=== PATIENT | female | born 1975 | race Hispanic/Latino ===

== ENCOUNTER 2017-07-03 19:38 | Inpatient (IN) | payer MEDICAID ==
[2017-07-03] MEDS ORDERED: Albuterol-Ipratrop 3 mg / 0.5 (3 ml) UD INH STA (20:35)
--- NOTE | 2017-07-03 20:35 | C.PDOC ---
History Of Present Illness 41 year old female presents to the ED as a pre-screen for detox. Patient is dependent on daily dosages of heroin and cocaine. Last drug dose was earlier today. Patient denies any IV drug use. Patient has a history of asthma and is not complaint with medication. Chief Complaint (Nursing): Substance Abuse History Per: Patient History/Exam Limitations: no limitations Onset/Duration Of Symptoms: Hrs Current Symptoms Are (Timing): Still Present Suicide/Self Injury Attempted (Context): None Past Medical History Reviewed: Historical Data, Nursing Documentation, Vital Signs Vital Signs: Last Vital Signs Temp 98.2 F 07/03/17 22:57 Pulse 93 H 07/03/17 22:57 Resp 20 07/03/17 22:57 BP 92/68 L 07/03/17 22:57 Pulse Ox 96 07/03/17 22:57 - Medical History PMH: Anxiety, Asthma, Depression Surgical History: No Surg Hx Family History: States: Unknown Family Hx - Social History Hx Alcohol Use: Yes Hx Substance Use: Yes Review Of Systems Except As Marked, All Systems Reviewed And Found Negative. Psych: Positive for: Other (heroin and cocaine intoxication. ) Physical Exam - Physical Exam Appears: No Acute Distress Skin: Warm, Dry Head: Atraumatic, Normacephalic Eye(s): bilateral: Normal Inspection Ear(s): Bilateral: Normal Nose: Normal Oral Mucosa: Moist Neck: Supple Chest: Symmetrical Cardiovascular: Rhythm Regular, No Murmur Respiratory: Wheezing (significant bilateral wheezing; inspiratory and expiratory wheezes with good air movements) Gastrointestinal/Abdominal: Soft, No Tenderness Back: Normal Inspection, No CVA Tenderness, No Vertebral Tenderness, No Paraspinal Tenderness Extremity: Normal ROM (x4) Neurological/Psych: Oriented x3 Gait: Steady ED Course And Treatment - Laboratory Results Result Diagrams: 07/03/17 21:03 07/03/17 21:03 O2 Sat by Pulse Oximetry: 97 (RA) Pulse Ox Interpretation: Normal Medical Decision Making Medical Decision Making: Time: 2033 Initial Impression: Drug Detox and Asthma treatment Plan: -- Alcohol serum -- CMP -- Drug Screen -- CBC with differentials -- Albuterol -- Nebulizer treatment -- Peak flow pre/post -- Urinalysis Patient is being sent for screening detox, awaiting lab work and to be seen by crisis as well as being treated for asthma. Time: 2204 -- Re-Eval: Patient's wheezes have improved and is resting comfortably. Patient is medically cleared to admittance to [facility] for detox. Disposition - Disposition Disposition: HOSPITALIZED Disposition Time: 23:50 Condition: FAIR - Clinical Impression Clinical Impression: Drug dependence - Scribe Statement The provider has reviewed the documentation as recorded by the Mariana Flores Provider Attestation: All medical record entries made by the Mariana were at my direction and personally dictated by me. I have reviewed the chart and agree that the record accurately reflects my personal performance of the history, physical exam, medical decision making, and the department course for this patient. I have also personally directed, reviewed, and agree with the discharge instructions and disposition.
--- NOTE | 2017-07-03 20:35 | C.PDOC ---
Chief Complaint (Nursing): Substance Abuse Past Medical History Vital Signs: Last Vital Signs Temp 98.4 F 07/03/17 19:53 Pulse 112 H 07/03/17 19:53 Resp 20 07/03/17 19:53 BP 102/73 07/03/17 19:53 Pulse Ox 97 07/03/17 19:53 - Medical History PMH: Anxiety, Asthma, Depression - Social History Hx Alcohol Use: Yes Hx Substance Use: Yes ED Course And Treatment O2 Sat by Pulse Oximetry: 97 Disposition - Disposition
[2017-07-03] MEDS ORDERED: Ipratropium 0.02% Inhal Soln (0.5 mg/2.5 ml) UD IH ONE (20:49)
[2017-07-03] MEDS ORDERED: Albuterol-Ipratrop 3 mg / 0.5 (3 ml) UD ONE (20:55)
[2017-07-03 21:06] LABS: BASO # 0.2 K/uL (0.0-0.2); BASO % 2.7 % (0.0-2.0); EOS # 0.7 K/uL (0.0-0.7); HEMOGLOBIN 16.5 g/dL (11.0-16.0); LYMPH % 37.6 % (20.0-40.0); MEAN CELL VOLUME 92.5 fL (81.0-99.0); MEAN CORPUSCULAR HEMOGLOBIN 31.3 pg (27.0-31.0); MEAN CORPUSCULAR HGB CONC 33.8 g/dL (33.0-37.0); MEAN PLATELET VOLUME 7.9 fL (7.2-11.7); MONO # 0.5 K/uL (0.0-0.8); MONO % 6.7 % (0.0-10.0); NEUT # 3.6 K/uL (1.8-7.0); NRBC % 0.1 % (0.0-2.0); RBC 5.28 Mil/uL (3.80-5.20); RED CELL DISTRIBUTION WIDTH 14.1 % (11.5-14.5); WHITE BLOOD COUNT 8.1 K/uL (4.8-10.8)
[2017-07-03 21:23] LABS: ALT/SGPT 40 U/L (9-52); AST/SGOT 35 U/L (14-36); BLOOD UREA NITROGEN 9 mg/dL (7-17); CALCIUM 9.2 mg/dl (8.6-10.4); GFR AFRICAN-AMERICAN > 60; GFR NON-AFRICAN AMERICAN > 60
[2017-07-03 21:24] LABS: SQUAMOUS EPITHIAL 23 /hpf (0-5); URINE BACTERIA MANY (<OCC); URINE BILIRUBIN NEGATIVE (NEGATIVE); URINE BLOOD 3+ (NEGATIVE); URINE CLARITY Hazy (Clear); URINE COLOR Amber (YELLOW); URINE GLUCOSE (UA) NORMAL (Normal); URINE LEUKOCYTE ESTERASE NEG Leu/uL (Negative); URINE PROTEIN 1+ mg/dL (NEGATIVE)
[2017-07-03 21:39] LABS: BARBITURATES, UR NEGATIVE (NEGATIVE); BENZODIAZEPINES, UR NEGATIVE (NEGATIVE); PHENCYCLIDINE, UR NEGATIVE (NEGATIVE)
[2017-07-03 21:50] LABS: OPIATES, UR POSITIVE (NEGATIVE)
[2017-07-04] MEDS ORDERED: Aluminum Hydroxide/Magnesium Hydroxide Susp (30 mL) PO PRN (10:16)
[2017-07-04] MEDS: Multiple Vitamins Tab PO SCH (10:44)
--- NOTE | 2017-07-04 13:32 | PCM.PSYCH ---
Initial Psychiatric Evaluation - Initial Psychiatric Evaluation Type of Admission: Voluntary Legal Status: Capacity Chief Complaint (in patient's own words): "I'm kicking very bad" History of Present Illness and Precipitating Events: The patient is seen, chart reviewed and case discussed. This is a 41-year-old female, with 2 children, aged 10 and 14. The patient lives with her boyfriend but then she said she is homeless and that she lives in father's car in [facility].. She is unemployed. The patient is using 10+ bags intranasal heroin and "a lot" crack cocaine. She also drinks more than 6 beers and some liquor a day. She reports withdrawal symptoms with all of them. No DTs or seizures though. She denies all other drug use. She was in detox and rehabilitation 2 times each. She feels depressed and anxious. Past psych history: No admissions or suicide attempts but she was on Lexapro for generalized anxiety and depression. Family psych history: Denies Medical history: Asthma Current Medications: Active Medications Generic Name Dose Route Start Last Admin Trade Name Freq PRN Reason Stop Dose Admin Al Hydrox/Mg Hydrox/Simethicone 30 ml 07/04/17 10:16 Maalox 30 Ml PO TID PRN Indigestion / Heartburn Chlordiazepoxide 25 mg 07/04/17 12:00 07/04/17 12:13 Librium PO 07/08/17 11:59 25 mg Q6H KIMBERLY Administration Taper Chlordiazepoxide 25 mg 07/04/17 10:18 Librium PO Q4H PRN Alcohol Withdrawal Clonidine HCl 0.1 mg 07/04/17 10:16 Catapres PO Q8 PRN COWS Score More or Equal to 5 Dicyclomine HCl 10 mg 07/04/17 10:16 Bentyl PO Q6H PRN gastric spasms Folic Acid 1 mg 07/04/17 10:30 07/04/17 10:44 Folic Acid PO 1 mg DAILY KIMBERLY Administration Gabapentin 300 mg 07/04/17 10:00 07/04/17 10:21 Neurontin PO 300 mg BID KIMBERLY Administration Hydroxyzine HCl 50 mg 07/03/17 23:09 Atarax PO Q6H PRN Anxiety Ibuprofen 600 mg 07/03/17 23:09 Motrin Tab PO Q6H PRN Pain, moderate (4-7) Loperamide HCl 2 mg 07/04/17 10:16 Imodium PO Q8 PRN Diarrhea Multivitamins 1 tab 07/04/17 10:30 07/04/17 10:44 Hexavitamin PO 1 tab DAILY KIMBERLY Administration Nicotine 1 patch 07/04/17 10:30 07/04/17 10:44 Nicoderm Cq TD 1 patch DAILY KIMBERLY Administration Nitrofurantoin Macrocrystals 100 mg 07/04/17 10:00 07/04/17 10:21 Macrobid PO 100 mg Q12H KIMBERLY Administration Protocol Ondansetron HCl 4 mg 07/04/17 10:16 Zofran Tab PO Q8 PRN Nausea/Vomiting Thiamine HCl 100 mg 07/04/17 10:30 07/04/17 10:48 Vitamin B1 Tab PO 100 mg DAILY KIMBERLY Administration Trazodone HCl 100 mg 07/03/17 23:09 Desyrel PO HS PRN Insomnia Past Psychiatric History - Past Psychiatric History Previous Treatment History: Intensive Outpatient (not intensive) Pertinent Medical Hx (Current Medical&Sleep Prob, Allergies): Allergies Allergy/AdvReac Type Severity Reaction Status Date / Time No Known Allergies Allergy Verified 07/03/17 19:53 No Known Home Med 07/03/17 Review of Systems - Neurological Neurological: Tremor - Psychiatric Psychiatric: Abnormal Sleep Pattern, Anhedonia, Anxiety, Depression, Difficulty Concentrating, Irritability. absent: Hallucinations, Homicidal Ideation, Suicidal Ideation Mental Status Examination - Personal Presentation Personal Presentation: Looks stated age (unkempt, in pain) - Affect Affect: Constricted - Motor Activity Motor Activity: Other (restless) - Reliability in Providing Information Reliability in Providing Information: Fair - Speech Speech: Organized - Mood Mood: Depressed, Anxious - Formal Thought Process Formal Thought Process: No Impairment - Cognitive Functions Orientation: Person, Place, Situation, Time Sensorium: Alert Attention/Concentration: Easily distracted Abstract Thinking: [place] Estimate of Intelligence: Average Judgement: Intact, as evidence by: Insight regarding need for hospitalization Memory: Recent intact, as evidence by: Ability to recall events of the day, Remote intact, as evidenced by: Abilit to recall sig. life events - Risk Risk: Withdrawal, Diminished functioning - Strength & Assets Inventory Strength & Assets Inventory: Cooperative - Limitations Limitations: Living alone, Other DSM 5 DX - DSM 5 DSM 5 Diagnosis: Opioid withdrawal Opioid use d/o - severe Cocaine use d/o - severe Alcohol use d/o - severe Depressive d/o - unspecified Panic d/o GERALD - Recommended/Plan of Treatment Treatment Recommendations and Plan of Treatment: Start methadone and librium tapers for opioids and alcohol Gabapentin for augmentation Lexapro for GERALD, panic, depression Prn medications All risks, benefits and alternatives of medications, including no medications, discussed and the patient understood and agreed. Attend groups and activities Individual therapy Psychoeducation and support Encourage compliance with meds and after care Refer to outpatient program Teach healthy lifestyle methods, i.e. diet, exercise, meditation Smoking cessation 34 min Projected ELOS: 5 days Prognosis: good w treatment - Smoking Cessation Smoking Cessation Initiated: Yes
[2017-07-04] MEDS: Albuterol HFA 90 mcg/actuation (8 g) INH PRN (16:06)
--- NOTE | 2017-07-04 16:59 | PCM.BM ---
<Odalys Alvarado - Last Filed: 07/04/17 16:57> Treatment Plan Problems - Problems identified on initial assessmt Potential for opiate withdrawal Date Initiated: 07/04/17 Time Initiated: 16:58 Assessment reference: NA Status: Active Priority: 1 Potential for alcohol withdrawal Date Initiated: 07/04/17 Time Initiated: 16:59 Assessment reference: NA Status: Active Priority: 2 Treatment assets and liabiliti Patient Assests: cooperative, ADL independent, cognitively intact Patient Liabilities: substance abuse - Milieu Protocol Maintain good personal hygiene: daily Encourage regular showers, daily Remind patient to perform daily oral care, daily Assist patient to perform ADL's Conduct patient checks and document Observation sheet: Q15 minutes Maintain personal safety: every shift Educate patient to report safety concerns to staff, every shift Monitor environment for contraband/sharps Medication safety: Monitor for expected outcome, potential side effects: every shift, Assess barriers to learning: every shift, Assess readiness for medication education: every shift <Michael Boyce - Last Filed: 07/04/17 17:23> - Diagnosis (1) Opioid use disorder, severe, dependence Status: Acute Interventions: 07/04/17 17:23 * Assess 7x/week regarding severity of withdrawal * Educate regarding risks, benefits, side effects and alternatives of medications * Use Motivational Interviewing for abstinence * Use CBT for relapse prevention * Medication management for withdrawal symptoms * Encourage medication assisted treatment * <Delmis Gipson - Last Filed: 07/07/17 13:59> Family Contact Family involvement: Famliy/SO not involved - Goals for Treatment Patient goals for treatment: Complete detox and apply for inpatient rehab. Discharge/Continuing Care - Education Needs Education Needs: Patient Medication, Patient Diagnosis/Disease Process, Patient Coping Skills, Patient Anger Management skills, Patient Placement options, Patient Community resources - Discharge Discharge Criteria: No longer exhibiting s/s of withdrawal, Reduction of target symptoms Discharge to:: Substance Abuse Rehab - Treatment Team Participation Patient/Family/SO Statement: 07/07/17 13:59 "I'd like to try [facility]..." Discussed with Family/SO: No Was Patient/Family/SO present at Treatment Team Meeting: Yes
[2017-07-04] MEDS: Vitamins A & D Oint UD Foilpak TOP SCH ×2 (19:42→21:23)
[2017-07-04] MEDS ORDERED: Magnesium Hydroxide Susp 30 ml UD PO ONE (22:00)
[2017-07-05] MEDS: Vitamins A & D Oint UD Foilpak TOP SCH ×3 (06:43→21:33)
[2017-07-05] MEDS: Multiple Vitamins Tab PO SCH (09:10)
[2017-07-05] MEDS: Albuterol HFA 90 mcg/actuation (8 g) INH PRN ×2 (09:13→18:07)
--- NOTE | 2017-07-05 13:32 | PCM.PYCHPN ---
Psychiatric Progress Note - Psychiatric Progress Note Patient seen today, length of contact: 16 min Patient Chief Complaint: "I'm better" Problems Identified/Issues Discussed: The pt is seen, chart reviewed, case discussed with staff. Support given, CBT and NE used briefly No new symptoms reported, improving slowly and needs more time No SEs from medications, risks discussed. After care discussed Medication Change: Yes (detox changes daily) Medical Record Reviewed: Yes Mental Status Examination - Cognitive Function Orientation: Person, Place, Situation, Time Memory: Intact Attention: WNL Concentration: Poor Association: WNL Fund of Knowledge: WNL - Mood Mood: Depressed, Anxious - Affect Affect: Constricted - Speech Speech: Appropriate - Formal Thought Process Formal Thought Process: No Impairment - Suicidal Ideation Suicidal Ideation: No - Homicidal Ideation Homicidal Ideation: No Goal/Treatment Plan - Goal/Treatment Plan Need for Continued Stay: Discharge may exacerbated symptoms, Severe functional impairment Progress Toward Problem(s) and Goals/Treatment Plan: Methadone and librium tapers for opioids and alcohol Gabapentin for augmentation Lexapro for GERALD, panic, depression Prn medications All risks, benefits and alternatives of medications, including no medications, discussed and the patient understood and agreed. Attend groups and activities Individual therapy Psychoeducation and support Encourage compliance with meds and after care Refer to outpatient program Teach healthy lifestyle methods, i.e. diet, exercise, meditation Smoking cessation
[2017-07-05] MEDS ORDERED: Magnesium Hydroxide Susp 30 ml UD PO ONE (17:55)
[2017-07-06] MEDS: Vitamins A & D Oint UD Foilpak TOP SCH ×3 (06:16→21:48)
[2017-07-06] MEDS: Multiple Vitamins Tab PO SCH (09:22)
[2017-07-06] MEDS: Albuterol HFA 90 mcg/actuation (8 g) INH PRN (09:25)
--- NOTE | 2017-07-06 13:53 | PCM.PYCHPN ---
Psychiatric Progress Note - Psychiatric Progress Note Patient seen today, length of contact: 15 min Patient Chief Complaint: "I'm tired" Problems Identified/Issues Discussed: The pt is seen, chart reviewed, case discussed with staff. Support given, CBT and RI used briefly No new symptoms reported, improving slowly and needs more time She is a little sedated, trazodone decreased. No SEs from medications, risks discussed. After care discussed -rehab Medication Change: Yes (detox changes daily) Medical Record Reviewed: Yes Mental Status Examination - Cognitive Function Orientation: Person, Place, Situation, Time Memory: Intact Attention: WNL Concentration: Poor Association: WNL Fund of Knowledge: WNL Addtional comments: Patient looked sedated - Mood Mood: Depressed, Anxious - Affect Affect: Constricted - Speech Speech: Appropriate - Formal Thought Process Formal Thought Process: No Impairment - Suicidal Ideation Suicidal Ideation: No - Homicidal Ideation Homicidal Ideation: No Goal/Treatment Plan - Goal/Treatment Plan Need for Continued Stay: Discharge may exacerbated symptoms, Severe functional impairment Progress Toward Problem(s) and Goals/Treatment Plan: Methadone and librium tapers for opioids and alcohol Gabapentin for augmentation Lexapro for GERALD, panic, depression Prn medications All risks, benefits and alternatives of medications, including no medications, discussed and the patient understood and agreed. Attend groups and activities Individual therapy Psychoeducation and support Encourage compliance with meds and after care Refer to outpatient program Teach healthy lifestyle methods, i.e. diet, exercise, meditation Smoking cessation
[2017-07-07] MEDS: Vitamins A & D Oint UD Foilpak TOP SCH ×3 (05:05→22:33)
[2017-07-07] MEDS: Albuterol HFA 90 mcg/actuation (8 g) INH PRN (09:08)
[2017-07-07] MEDS: Multiple Vitamins Tab PO SCH (09:13)
--- NOTE | 2017-07-07 13:20 | PCM.PYCHPN ---
Psychiatric Progress Note - Psychiatric Progress Note Patient seen today, length of contact: 16 min Patient Chief Complaint: "I'm doing ok" Problems Identified/Issues Discussed: The pt is seen, chart reviewed, case discussed with staff. The pt is compliant with medications and reports no side-effects. Symptoms are improving but needs more time to stabilize. After care discussed, support and psychoeducation given. Interested in rehab Medication Change: Yes (detox changes daily) Medical Record Reviewed: Yes Mental Status Examination - Cognitive Function Orientation: Person, Place, Situation, Time Memory: Intact Attention: WNL Concentration: Poor Association: WNL Fund of Knowledge: WNL - Mood Mood: Depressed, Anxious - Affect Affect: Constricted - Speech Speech: Appropriate - Formal Thought Process Formal Thought Process: No Impairment - Suicidal Ideation Suicidal Ideation: No - Homicidal Ideation Homicidal Ideation: No Goal/Treatment Plan - Goal/Treatment Plan Need for Continued Stay: Discharge may exacerbated symptoms, Severe functional impairment Progress Toward Problem(s) and Goals/Treatment Plan: Methadone and librium tapers for opioids and alcohol Gabapentin for augmentation Lexapro for GERALD, panic, depression Prn medications All risks, benefits and alternatives of medications, including no medications, discussed and the patient understood and agreed. Attend groups and activities Individual therapy Psychoeducation and support Encourage compliance with meds and after care Refer to outpatient program Teach healthy lifestyle methods, i.e. diet, exercise, meditation Smoking cessation
[2017-07-07 16:21] VITALS: RESP 18
[2017-07-08] MEDS: Vitamins A & D Oint UD Foilpak TOP SCH (05:26)
--- NOTE | 2017-07-08 08:47 | PCM.PYCHDC ---
Mental Status Examination - Mental Status Examination Orientation: Person, Place, Situation, Time Memory: Intact Mood: Anxious Affect: Constricted Speech: Appropriate Attention: Poor Concentration: Poor Association: WNL Fund of Knowledge: WNL Formal Thought Process: No Impairment Suicidal Ideation: No Current Homicidal Ideation?: No Discharge Summary - Discharge Note Reason for Hospitalization: Heroin detox Consultations:: List each consultation separately and include: 1. Reason for request. 2. Findings. 3. Follow-up Summary of Hospital Course include:: 1. Description of specific treatment plan utilized for patients during their course of treatmen. 2. Summarize the time- course for resolution of acute symptoms and/or regressed behaviors. 3. Describe issues identified and worked on during hospitalization. 4. Describe medication utilized. 5. Describe medical problems identified and treated. 6. Reassessment of suicide risk Summary of Hospital Course: The patient is seen, chart reviewed and case discussed. On admission: This is a 41-year-old female, with 2 children, aged 10 and 14. The patient lives with her boyfriend but then she said she is homeless and that she lives in father's car in [facility] She is unemployed. The patient is using 10+ bags intranasal heroin and "a lot" crack cocaine. She also drinks more than 6 beers and some liquor a day. She reports withdrawal symptoms with all of them. No DTs or seizures though. She denies all other drug use. She was in detox and rehabilitation 2 times each. She feels depressed and anxious. Past psych history: No admissions or suicide attempts but she was on Lexapro for generalized anxiety and depression. Family psych history: Denies Medical history: Asthma Hospital course: The pt was admitted and started on treatment with psychotherapy, support, psychoeducation and medications. SD and CBT used. The pt attended groups and activities, as well as milieu therapy. All the risks and benefits of medications are discussed and the patient understood and agreed. The pt improved with the treatments provided. After care discussed with the patient. She went to [facility]. - Final Diagnosis (DSM 5) Condition upon Discharge: IMPROVED DSM 5: Opioid withdrawal Opioid use d/o - severe Cocaine use d/o - severe Alcohol use d/o - severe Depressive d/o - unspecified Panic d/o GERALD Disposition: REHAB FACILITY/REHAB UNIT Follow-up Treatment Plan: Continue below medications after discharge. Follow after care plan as discussed. Use relapse prevention skills Return to ER or call 911 if suicidal, homicidal or symptoms relapse. Stay away from stress, alcohol and drugs. See primary doctor regularly and get labs. Prescriptions/Medication Reconciliation: Escitalopram [Lexapro] 10 mg PO DAILY #30 tab Gabapentin [Neurontin] 300 mg PO TID #90 cap traZODone [Desyrel] 100 mg PO HS PRN #30 tab PRN Reason: Insomnia - Smoking Cessation Smoking Cessation Medication prescribed: No - Antipsychotic Medications Pt discharged on 2 or more routine antipsychotic medications: No
[2017-07-08] MEDS: Multiple Vitamins Tab PO SCH (09:06)
[2017-07-08 09:22] VITALS: BP 101/67; PULSE 81; TEMP 97.6; O2SAT 97
== END 2017-07-08 09:30 | DRG 745 ==
LOC: C.ER 19:38 → C.7D 22:29
PROVIDERS: ADMIT Psychiatry & Neurology Psychiatry; ATTEND Psychiatry & Neurology Psychiatry
PROC: HZ2ZZZZ Detoxification Services for Substance Abuse Treatment (ICD-10-PCS; principal; 2017-07-03)
PROC: HZ59ZZZ Individual Psychotherapy for Substance Abuse Treatment, Supportive (ICD-10-PCS; 2017-07-03)
PROC: HZ46ZZZ Group Counseling for Substance Abuse Treatment, Psychoeducation (ICD-10-PCS; 2017-07-03)
PROC: GZ3ZZZZ Medication Management (ICD-10-PCS; 2017-07-03)
DX: F11.23 Opioid dependence with withdrawal (principal); F10.20 Alcohol dependence, uncomplicated; F14.10 Cocaine abuse, uncomplicated; F32.9 Major depressive disorder, single episode, unspecified; F41.1 Generalized anxiety disorder; F41.0 Panic disorder [episodic paroxysmal anxiety]; J45.909 Unspecified asthma, uncomplicated; F17.210 Nicotine dependence, cigarettes, uncomplicated; Z59.0 Homelessness